=== PATIENT | female | born 1980 | race Caucasian/White ===

== ENCOUNTER 2023-02-16 11:05 | Inpatient (IN) | payer OTHER ==
[2023-02-16] MEDS ORDERED: ELECTROLYTE-148 SOLN 1,000 ML IV ONE (14:10)
[2023-02-16] MEDS ORDERED: LIDOCAINE HCL 1% PRESERVATIVE FREE - 30ML VIAL ONE (14:39)
[2023-02-16] MEDS ORDERED: OXYTOCIN 20 UNITS in 0.9% NS 20 UNIT/1,000 ML INFUS.BAG IV ONE (14:41)
[2023-02-16] MEDS ORDERED: BENZOCAINE 20% 57 GM BOTTLE TP PRN (14:59)
[2023-02-16] MEDS ORDERED: ACETAMINOPHEN 325 MG TABLET (FP) PO PRN (14:59)
[2023-02-16] MEDS ORDERED: WITCH HAZEL 50% (TUCKS) 40 PAD/JAR PAD TP PRN (14:59)
[2023-02-16] MEDS ORDERED: BENZOCAINE 28 GM HEMORRHOIDAL OINTMENT TP PRN (14:59)
[2023-02-16] MEDS ORDERED: oxyCODONE HCL 5 MG TABLET PO PRN (14:59)
[2023-02-16] MEDS ORDERED: BISACODYL 10 MG SUPP.RECT RC PRN (14:59)
[2023-02-16] MEDS ORDERED: METHYLERGONOVINE MALEATE 0.2 MG/1 ML AMP IM PRN (14:59)
[2023-02-16] MEDS ORDERED: METHYLERGONOVINE MALEATE 0.2 MG/1 ML AMP IM ONE (15:00)
[2023-02-16] MEDS ORDERED: OXYTOCIN 20 UNITS in 0.9% NS 20 UNIT/1,000 ML INFUS.BAG IV SCH (15:00)
[2023-02-16 15:20] LABS: CORD BASE EXCESS -2.6 mmol/L (0-2); CORD HCO3 24.7 mmHg (20-29); CORD PCO2 53.1 mmHg (30-78); CORD pH 7.286 (7.14-7.44)
[2023-02-16 15:22] LABS: CORD BASE EXCESS -2.9 mmol/L (0-2); CORD HCO3 21.9 mmHg (20-29); CORD PCO2 38.5 mmHg (30-78); CORD pH 7.373 (7.14-7.44)
[2023-02-16 15:43] VITALS: BMI 27.6
[2023-02-16 15:55] LABS: BASO % 0.4 % (0-2.0); EOS % 0.6 % (0-4.5); HEMATOCRIT 41.4 % (32.4-45.2); HEMOGLOBIN 13.9 GM/dL (10.7-15.3); LYMPH % 13.1 % (8-40); MCHC 33.5 g/dl (32.0-36.0); MEAN CELL VOLUME 95.6 fl (80-96); MEAN PLT VOLUME 10.2 fl (7.5-11.1); MONO % 5.3 % (3.8-10.2); NEUT % 80.6 % (42.8-82.8); PLATELET COUNT 207 10^3/uL (134-434); RBC 4.33 M/mm3 (3.60-5.2); RDW 14.2 % (11.6-15.6); WHITE BLOOD COUNT 7.7 K/mm3 (4.0-10.0)
[2023-02-16 16:03] LABS: INR 0.94 (0.83-1.09); PROTHROMBIN TIME (PATIENT) 10.9 SEC (9.7-13.0)
[2023-02-16 16:13] LABS: POTASSIUM 4.1 mmol/L (3.5-5.1)
[2023-02-16 16:15] LABS: BLOOD UREA NITROGEN 6.7 mg/dL (7-18)
[2023-02-16 16:19] LABS: CREATININE 0.5 mg/dL (0.55-1.3)
[2023-02-16 21:15] VITALS: RESP 18
[2023-02-17] MEDS: IBUPROFEN 600 MG TABLET (FP) PO PRN (06:15)
[2023-02-17 08:48] LABS: BASO % 0.4 % (0-2.0); HEMATOCRIT 35.7 % (32.4-45.2); HEMOGLOBIN 12.3 GM/dL (10.7-15.3); MCHC 34.4 g/dl (32.0-36.0); MEAN PLT VOLUME 10.4 fl (7.5-11.1); MONO % 6.8 % (3.8-10.2); NEUT % 69.8 % (42.8-82.8); PLATELET COUNT 184 10^3/uL (134-434); RBC 3.72 M/mm3 (3.60-5.2); WHITE BLOOD COUNT 7.5 K/mm3 (4.0-10.0)
[2023-02-17 21:24] VITALS: TEMP 98.4
[2023-02-17] MEDS ORDERED: SENNOSIDES/DOCUSATE COMBO (SENNA PLUS) TABLET (UD) PO PRN (22:00)
[2023-02-18] MEDS: IBUPROFEN 600 MG TABLET (FP) PO PRN (05:54)
[2023-02-18 09:59] VITALS: BP 110/74; PULSE 63
== END 2023-02-18 12:05 | disposition home or self-care (01) | DRG 560 ==
LOC: JDEL 11:05 → JLDR 14:10 → J3W 17:22
PROVIDERS: ADMIT Obstetrics & Gynecology; ATTEND Obstetrics & Gynecology
PROC: 10E0XZZ Delivery of Products of Conception, External Approach (ICD-10-PCS; principal; 2023-02-16)
DX: O80 Encounter for full-term uncomplicated delivery (principal); Z3A.39 39 weeks gestation of pregnancy; Z37.0 Single live birth
CPT/HCPCS: 36415; 36600; 59025; 76819-TC; 80048; 82803; 85025; 85610; 85730; 86780; 86850; 86900; 86901